=== PATIENT | male | born 1955 | race Caucasian/White ===

== ENCOUNTER → 2016-09-30 | Outpatient (CLI) | payer OTHER ==
[~2016-09-30] MED LIST: ACETAMINOPHEN650 M3 PO; AMITRYPTYLINE PO; ASPIRIN81 M1 PO; CIPRO PO; COUMADIN PO; COUMADIN5 MG PO; COUMADIN7.5 MG PO; FLEXERIL PO; FLEXERIL10 MG PO; GABAPENTIN600 MG PO; HYDROCODON-ACE1 EAC7 PO; LYRICA PO; NICODERM CQ1 EACH TD; NO MEDICATIONS; NORCO 5/325 TAB1 TAB PO; PERCOCET 10/3251 TAB; PERCOCET 5-3251 TAB PO; TOLMETIN SODIU400 MG PO; VICODIN 5/500 T1 TAB PO; VITAMIN B12-FO1 EACH PO; XARELTO15 MG PO; XARELTO20 MG PO
--- NOTE | ~2016-09-30 | CR173 ---
[facility] A Service of [facility] & [facility] RADIOLOGY TEXT RESULTS PATIENT: RALPH RIDDLE SR LOCATION: [facility] : [birth year] UNIT #: [id number] AGE: [address]: Luis Romero MD SEX: M ORDER DR: [id number] [facility] [address] [facility]. [place], [place] [address] [id number] O MR#: [id number] Acc #: [id number] NAME: RALPH RIDDLE SR : 1955 SEX: M STUDY DATE/TIME: 09/30/2016 11:30 UNIT: [facility] ROOM: STUDY DESCRIPTION: CR Knee 3 Views Rt Attending Physician: Luis Romero M.D. Referring Physician: Luis Romero M.D. Ordering Physician: Luis Romero M.D. Primary Care Physician: Nayana Woodson M.D. MEDICAL IMAGING REPORT This report is preliminary unless electronic signature is present EXAM Right knee 3 views 09/30/2016 INDICATIONS Right knee pain for 2-3three years. COMPARISON STUDIES No comparisons. FINDINGS There is no significant joint space narrowing. There is no fracture, dislocation or joint effusion. IMPRESSION Negative. Dictated by... Yosi Ramires M.D. THIS IS AN ELECTRONICALLY VERIFIED REPORT Yosi Ramires M.D. at 10/02/2016 7:23 AM ANASTASIIA/scotty TD: 09/30/2016 17:33 JOB #: [id number] MEDICAL IMAGING REPORT Page 1 of 1 COPY
--- NOTE | ~2016-09-30 | CR172 ---
[facility] A Service of [facility] & [facility] RADIOLOGY TEXT RESULTS PATIENT: RALPH RIDDLE SR LOCATION: [facility] : 57 UNIT #: [id number] AGE: [address]: Luis Romero MD SEX: M ORDER DR: [id number] [facility] [address]. [place], [place] [address] [id number] O MR#: [id number] Acc #: [id number] NAME: RALPH RIDDLE SR : 1955 SEX: M STUDY DATE/TIME: 09/30/2016 11:29 UNIT: [facility] ROOM: STUDY DESCRIPTION: CR Knee 3 Views Lt Attending Physician: Luis Romero M.D. Referring Physician: Luis Romero M.D. Ordering Physician: Luis Romero M.D. Primary Care Physician: Nayana Woodson M.D. MEDICAL IMAGING REPORT This report is preliminary unless electronic signature is present EXAM Left knee 3 views INDICATIONS Knee pain for cwf-ei-atfwl years. COMPARISON STUDIES No comparisons. FINDINGS There is no significant joint space narrowing. No fracture, dislocation or joint effusion. IMPRESSION Negative. Dictated by... Yosi Ramires M.D. THIS IS AN ELECTRONICALLY VERIFIED REPORT Yosi Ramires M.D. at 10/02/2016 7:23 AM ARS/pcl TD: 09/30/2016 17:35 JOB #: [id number] MEDICAL IMAGING REPORT Page 1 of 1 COPY
== END | disposition home or self-care (01) ==
LOC: CRAD 11:12
DX: M17.0 Bilateral primary osteoarthritis of knee (principal)
CPT/HCPCS: 73562

== ENCOUNTER 2016-10-15 15:17 | Inpatient (IN) | payer OTHER ==
--- NOTE | ~2016-10-15 | DS ---
Unit #: [id number] #: [id number] Patient: RALPH RIDDLE SR [id number] [address] [address] [id number] I MR#: [id number] NAME: RALPH RIDDLE SR ROOM: [facility] Age: 61 Sex: M Admission Date: 10/15/2016 : 1955 Discharge Date: Attending Physician: Lamont Salgado M.D. Primary Care Physician: Nayana Woodson M.D. DISCHARGE SUMMARY SHORT STAY SUMMARY DIAGNOSES 1. Right upper quadrant pain, status post General Surgery evaluation. Pain resolved. Stable to be discharged. 2. History of deep venous thromboses, on chronic anticoagulation. 3. History of chronic obstructive pulmonary disease, stable, at baseline. 4. History of chronic pain, stable. DISCHARGE MEDICATIONS 1. [place] 5/325 at 1 or 2 tablets q.4-6 p.r.n. for pain. 2. Lyrica 150 mg b.i.d. 3. Nicotine patch 21 mg daily. 4. Vitamin B12 at 1 tablet daily. 5. Xarelto 20 mg daily. HISTORY OF PRESENT ILLNESS Mr. Riddle is a 61-year-old gentleman, patient of Dr. Frasnico Woodson, with a past medical history of DVT with failure of Coumadin and is chronically maintained on Xarelto. He saw his primary care physician in the office with complaints of right upper quadrant pain and was directly admitted to [facility]. He had workup with an ultrasound of the right upper quadrant which was unremarkable. His chemistry was normal without any elevation of LFTs. Amylase and lipase also were normal. Patient is status post evaluation per General Surgery who cleared the patient for discharge. If the pain reoccurs, patient could be followed up as an outpatient with Surgery and do a HIDA scan at that time. If the HIDA scan is abnormal, then patient needs to stay off the Xarelto for at least a week in preparation for the surgery. In the hospital, his Xarelto was held, and he was maintained on low heparin protocol which is being discontinued now. Currently, patient denies any pain. His abdominal pain has completely resolved. He is tolerating a p.o. diet without any problems. No nausea or vomiting, no fever or chills, no chest pain, no headache, no dizziness, and no diarrhea. So a 12-point review of systems on this patient basically is negative. PAST MEDICAL HISTORY As above. Significant for COPD and DVT, along with chronic back pain. PAST SURGICAL HISTORY Unit #: [id number] #: [id number] Patient: RALPH RIDDLE SR Back surgery x2. HOME MEDICATIONS As above in Discharge Medications. ALLERGIES No known drug allergies. SOCIAL HISTORY No current history of tobacco, alcohol, or illicit drugs. FAMILY HISTORY Unremarkable. PHYSICAL EXAMINATION GENERAL: Patient is a 61-year-old gentleman in no acute distress. VITAL SIGNS: Blood pressure 107/77, heart rate 58, respirations 18, and temperature 97.5. HEENT: Head is atraumatic. Pupils equal, round, and reactive to light and accommodation. Extraocular muscles intact. Oropharynx clear. NECK: Supple. No mass, no JVD, and no bruits. CHEST: Clear to auscultation bilaterally. CARDIOVASCULAR: S1 and S2. No murmurs. ABDOMEN: Soft, nontender, and nondistended. LOWER EXTREMITIES: Without any cyanosis, clubbing, or edema. NEUROLOGIC: Grossly intact with no focal deficits. DIAGNOSTIC STUDIES LABORATORY: Chemistry and CBC unremarkable as above. White count 7.4 and hemoglobin and hematocrit 14.5 and 43.2. ASSESSMENT AND PLAN 1. Right upper quadrant pain, status post negative workup, status post General Surgery evaluation. Pain resolved. Stable to be discharged. Tolerating diet. 2. History of deep venous thrombosis. Resume home anticoagulation with Xarelto. 3. History of chronic obstructive pulmonary disease, stable. 4. History of tobacco use. Continue nicotine patch. 5. History of chronic pain, stable. Discharge medications as above. DISPOSITION Going home. FOLLOWUP With primary care physician next week. Dictated by... Lamont Salgado M.D. OC/toby TD: 10/16/2016 16:00 JOB #: [id number] Unit #: [id number] #: [id number] Patient: RALPH RIDDLE SR DISCHARGE SUMMARY Page 1 of 1 X Lamont Salgado MD X DISCHARGE SUMMARY
--- NOTE | ~2016-10-15 | CO ---
Unit #: [id number] #: [id number] Patient: RALPH RIDDLE SR [id number] [address] [address] [id number] I MR#: [id number] NAME: RALPH RIDDLE SR ROOM: [facility] Age: 61 Sex: M Admission Date: 10/15/2016 : 1955 Attending Physician: Lamont Salgado M.D. Primary Care Physician: Nayana Woodson M.D. Consultation Date: 10/16/2016 CONSULTATION REPORT BRIEF HISTORY The patient is a 61-year-old gentleman who presents with a recent onset of right upper quadrant abdominal pain. Some nausea, no vomiting, no diarrhea, no fevers. Pain is now resolved. I was asked to evaluate for possible biliary disease. He states that his pain was mainly right upper quadrant, nonradiating, crampy in character. PAST HISTORY DVT with possible Coumadin failure about two years ago. He is currently on Xarelto. He has had no abdominal operations. SOCIAL HISTORY He does smoke. No alcohol. FAMILY HISTORY Negative for GI malignancy. MEDICATIONS 1. Timentin. 2. Xarelto. 3. Amitriptyline. 4. Gabapentin. REVIEW OF SYSTEMS No cardiopulmonary complaints at this time. All ten systems reviewed and negative. PHYSICAL EXAMINATION GENERAL: He is awake, alert, appropriate, currently pain free. VITAL SIGNS: Afebrile. HEENT: Unremarkable. NECK: Supple. No JVD. Trachea midline. LUNGS: Clear to auscultation. Breath sounds symmetric. CARDIOVASCULAR: Regular rate and rhythm. ABDOMEN: Soft, nontender, nondistended. I palpate no masses. No hepatosplenomegaly. EXTREMITIES: No clubbing, cyanosis or edema. DIAGNOSTIC STUDIES LABORATORY: Labs show a normal white count. Chemistries are normal. Unit #: [id number] #: [id number] Patient: RALPH RIDDLE SR IMAGING: Recent ultrasound shows normal ducts. No stones, no fluid. No stones or sludge. ASSESSMENT AND PLAN Right upper quadrant pain. Doubt biliary etiology. Currently asymptomatic. Would recommend outpatient [facility] HIDA scan if needed. If recurrent, would need to remain off of Xarelto for one week for possible surgery if positive scan. Dictated by... Claudia Pinto/martha TD: 10/16/2016 11:59 JOB #: [id number] CONSULTATION REPORT Page 1 of 1 X True Lyons MD CONSULTATION REPORT
--- NOTE | ~2016-10-15 | US6 ---
[facility] A Service of [facility] RADIOLOGY TEXT RESULTS PATIENT: RALPH RIDDLE SR LOCATION: [facility] 302- : [birth year] UNIT #: [id number] AGE: [address]: Lamont Salgado MD SEX: M ORDER DR: [id number] [place] [id number] [facility]. [place], [place] [address] [id number] I MR#: [id number] Acc #: [id number] NAME: RALPH RIDDLE SR : 1955 SEX: M STUDY DATE/TIME: 10/15/2016 19:17 UNIT: [address] ROOM: [facility] STUDY DESCRIPTION: US Abdominal Limited Attending Physician: Lamont Salgado M.D. Ordering Physician: Fransico Woodson M.D. Primary Care Physician: Nayana Woodson M.D. MEDICAL IMAGING REPORT This report is preliminary unless electronic signature is present EXAM Right upper quadrant ultrasound INDICATION Right upper quadrant pain x3 weeks. TECHNIQUE Jackson-scale and color Doppler sonographic images were obtained through the right upper quadrant. FINDINGS Pancreas cannot be seen due to overlying bowel gas. The patient does appear to have diffuse hepatic steatosis. No definite focal hepatic lesions are seen and there is no intra or extrahepatic biliary dilatation. Right kidney is normal in appearance with no solid or cystic renal masses seen and no hydronephrosis identified. No stones or sludge are seen within the gallbladder. There is no gallbladder wall thickening or pericholecystic fluid. IMPRESSION Diffuse hepatic steatosis. No stones or sludge are seen within the gallbladder. There is no evidence of acute cholecystitis. Dictated by... Keke Esteves M.D. THIS IS AN ELECTRONICALLY VERIFIED REPORT Keke Esteves M.D. at 10/16/2016 10:59 AM AFF/abdulkadir TD: 10/16/2016 03:39 [facility] A Service of [facility] RADIOLOGY TEXT RESULTS PATIENT: RALPH RIDDLE SR LOCATION: [facility] 302-01 : [birth year] UNIT #: [id number] AGE: [address]: Lamont Salgado MD SEX: M ORDER DR: JOB #: [id number] MEDICAL IMAGING REPORT Page 1 of 1 COPY
[~2016-10-15 15:17] MED LIST changes: -HYDROCODON-ACE1 EAC7 PO; -LYRICA PO; -NICODERM CQ1 EACH TD; -VITAMIN B12-FO1 EACH PO
[2016-10-15 18:32] LABS: HEMATOCRIT 43.2 % (38.0-50.0); HEMOGLOBIN 14.5 gm/dL (13.0-16.0); MEAN CORPUSCULAR HEMOGLOBIN 29.5 PG (28-34); MEAN CORPUSCULAR HGB CONC 33.5 g/dL (30-36); MEAN PLATELET VOLUME 7.4 FL (6.5-11.5); RED BLOOD COUNT 4.91 X10e (3.90-5.60); RED CELL DISTRIBUTION WIDTH 14.7 % (11.0-15.5); WHITE BLOOD COUNT 7.4 X10e3 (4.0-10.5)
[2016-10-15] MEDS ORDERED: LYRICA PO (18:42)
[2016-10-15] MEDS ORDERED: NICODERM CQ1 EACH TD (18:43)
[2016-10-15] MEDS ORDERED: VITAMIN B12-FO1 EACH PO (18:49)
[2016-10-15 18:56] LABS: ALBUMIN SERUM 4.2 g/dL (3.5-5.0); BILIRUBIN,TOTAL 1.1 mg/dL (0.2-2.0); BUN/CREATININE RATIO 18.33; CREATININE SERUM 1.2 mg/dL (0.6-1.4); GLOM FILT RATE Estimated 65.4 mL/min (>60); POTASSIUM 3.5 mmol/L (3.5-5.1); PROTEIN TOTAL SERUM 7.7 g/dL (6.0-8.3)
[2016-10-15 20:40] LABS: PROTHROMBIN TIME (PATIENT) 10.9 SECONDS (9.6-11.5)
[2016-10-16] MEDS ORDERED: HYDROCODON-ACE1 EAC7 PO (15:20)
== END 2016-10-16 17:58 | disposition home or self-care (01) | DRG 392 ==
LOC: C2A 15:17 → C3A PCU 19:53
PROVIDERS: Hospitalist; Internal Medicine
DX: R10.11 Right upper quadrant pain (principal); J44.9 Chronic obstructive pulmonary disease, unspecified; R11.0 Nausea; Z86.718 Personal history of other venous thrombosis and embolism; Z79.01 Long term (current) use of anticoagulants; G89.29 Other chronic pain
CPT/HCPCS: 76705; 80053; 82150; 82947; 83690; 85027; 85610; 85730; J1644

== ENCOUNTER → 2017-01-01 | Outpatient (CLI) | payer OTHER ==
[~2017-01-01] MED LIST changes: +HYDROCODON-ACE1 EAC7 PO; +LYRICA PO; +NICODERM CQ1 EACH TD; +VITAMIN B12-FO1 EACH PO
--- NOTE | ~2017-01-01 | MR104 ---
[facility] A Service of [facility] & [facility] RADIOLOGY TEXT RESULTS PATIENT: RALPH RIDDLE SR LOCATION: [facility] : 57 UNIT #: [id number] AGE: [address]: Luis Romero MD SEX: M ORDER DR: [id number] [facility] [address] [facility]. [place], [place] [address] [id number] O MR#: [id number] Acc #: [id number] NAME: RALPH RIDDLE SR : 1955 SEX: M STUDY DATE/TIME: 01/01/2017 10:22 UNIT: [facility] ROOM: STUDY DESCRIPTION: MR Knee Wo Contrast Rt Attending Physician: Luis Romero M.D. Referring Physician: Luis Romero M.D. Ordering Physician: Luis Romero M.D. Primary Care Physician: Nayana Woodson M.D. MRI CENTER REPORT This report is preliminary unless electronic signature is present. EXAM MRI of the right knee without contrast. HISTORY 61-year-old male complains of anterior knee pain for over 5 years. No known trauma. Past history of meniscal surgery but no details provided. Complains of medial-sided pain. COMPARISON Right knee films 09/30/2016 TECHNIQUE Multiplanar multiecho imaging was performed of the right knee utilizing a high field magnet and dedicated protocol. FINDINGS Examination demonstrates early degenerative change of the knee with spurring the tibial spines, squaring the tibial margins. Small amount of pshg-jo-amtegbpk grade chondromalacia noted within the medial femoral condyle. No areas of high-grade chondromalacia identified. A small degenerative tear, posterior horn, medial meniscus, but no defined type of tear or displaced meniscal fragment. Lateral meniscus appears intact. The cruciate and collateral ligaments appear normal. There is a minimal knee effusion. Collateral ligaments and extensor mechanism unremarkable. No focal marrow edema. Mild anterior knee soft tissue swelling and edema. A small amount of chondromalacia also noted within the deep trochlear groove. IMPRESSION 1. 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 No areas of high-grade STS. [facility] A Service of [facility] & [facility] RADIOLOGY TEXT RESULTS PATIENT: RALPH RIDDLE SR LOCATION: [facility] : 57 UNIT #: [id number] AGE: [address]: Luis Romero MD SEX: M ORDER DR: chondromalacia identified. 2. Probable small degenerative tear, inner margin, posterior horn, medial meniscus, but no defined tear or displaced meniscal fragment. 3. Small knee effusion. Dictated by... Zane Ramires M.D. THIS IS AN ELECTRONICALLY VERIFIED REPORT Zane Ramires M.D. at 01/01/2017 5:11 PM Johana TD: 01/01/2017 15:46 JOB #: [id number] MRI CENTER REPORT Page 1 of 1 COPY
== END | disposition home or self-care (01) ==
LOC: CMRI 08:47
DX: M17.11 Unilateral primary osteoarthritis, right knee (principal); M94.261 Chondromalacia, right knee; M25.461 Effusion, right knee
CPT/HCPCS: 73721